=== PATIENT | female | born 1995 | race Two or more races ===

== ENCOUNTER 2016-06-14 22:30 | Emergency (ER) | payer SELFPAY ==
[~2016-06-14] VITALS: Ht 162.6 cm; Wt 75.0 kg
[2016-06-14 22:53] VITALS: BP 127/53
== END 2016-06-14 23:51 | disposition left against medical advice (07) ==
LOC: ER 22:30
DX: F10.129 Alcohol abuse with intoxication, unspecified (principal); R11.2 Nausea with vomiting, unspecified